=== PATIENT | female | born 1990 | race Two or more races ===

== ENCOUNTER 2019-11-17 10:25 | Emergency (ER) | payer MEDICAID ==
[~2019-11-17] VITALS: Ht 157.5 cm; Wt 77.6 kg
[2019-11-17 10:47] VITALS: BP 109/65
== END 2019-11-17 16:24 | disposition home or self-care (01) ==
LOC: ER 10:25
DX: J20.9 Acute bronchitis, unspecified (principal); J01.90 Acute sinusitis, unspecified; Z87.440 Personal history of urinary (tract) infections